=== PATIENT | female | born 1985 | race Caucasian/White ===

== ENCOUNTER → 2017-07-11 | Outpatient (CLI) | payer OTHER ==
--- NOTE | 2017-07-11 16:12 | Diagnostic Imaging Report ---
INDICATION: OB ultrasound for dates and survey. TECHNIQUE: Multiple real-time grayscale images were obtained over the gravid uterus. COMPARISON: None FINDINGS: There is single live intrauterine fetus. Fetus is vertex and active. heart rate of 155 beats per minute. Placenta is anterior and not low. Amniotic fluid index is normal. The anatomical survey is normal. biometric measurements are currently average for 21 week one day. Biometrical measurements are as follows: Biparietal 4.74 cm, age 20 weeks 3 days. Head circumference 18.13 cm, age 20 weeks 4 days. Abdominal circumference 17.24 cm, age 22 weeks 2 days. Femur length 3.55 cm, age 21 weeks 2 days. Sonographic estimate age: 21 weeks 1 days. Sonographic estimated date of delivery: 11-20-17. Estimated Weight: 434 gm (+/- 63 gm). LMP percentile: 97%. heart rate: 155 beats per minute. number: 1 of 1. IMPRESSION: 21-week 1-day live intrauterine by current ultrasound measurements. Sonographic EDC of 11/20/2017. Dictated by: Dictated on workstation # [id number]
== END ==
LOC: EDBD → RAD 12:37
PROVIDERS: ATTEND Obstetrics & Gynecology
DX: Z36.89 Encounter for other specified antenatal screening (principal); Z3A.21 21 weeks gestation of pregnancy
CPT/HCPCS: 76805

== ENCOUNTER 2017-11-14 03:54 | Inpatient (IN) | payer OTHER ==
[2017-11-14] VITALS (50 sets, daily range): BP systolic 93–129; BP diastolic 51–71
[~2017-11-14] VITALS: Ht 167.6 cm; Wt 72.3 kg
[2017-11-14 04:17] LABS: BILIRUBIN,URINE NEGATIVE (NEGATIVE); CLARITY,URINE CLEAR; COLOR,URINE YELLOW; GLUCOSE, URINE (UA) NEGATIVE (NEGATIVE); KETONES,URINE NEGATIVE (NEGATIVE); LEUKOCYTE ESTERASE ,URINE NEGATIVE (NEGATIVE); NITRITE,URINE NEGATIVE (NEGATIVE); PH,URINE 8 (5-9); PROTEIN,URINE NEGATIVE (NEGATIVE); UROBILINOGEN,URINE NORMAL (NORMAL)
[2017-11-14] MEDS ORDERED: FERR-84 PO (04:22)
[2017-11-14] MEDS ORDERED: PREN-37 PO (04:22)
[2017-11-14 04:28] LABS: BACTERIA,URINE NEGATIVE /HPF; SQUAMOUS EPITHELIAL CELL,UR 0-2 /HPF
[2017-11-14] MEDS ORDERED: D5 LR IV SOLUTION 1,000 ML IV ONE (05:24)
[2017-11-14] MEDS ORDERED: D5 LR IV SOLUTION 1,000 ML IV SCH (05:25)
[2017-11-14] MEDS ORDERED: MINERAL OIL CONCENTRATE 99.9% 15 ML UDC TOP PRN (05:30)
[2017-11-14] MEDS ORDERED: CATHETER FLUSH 10 ML SYR IV PRN (05:30)
[2017-11-14 05:49] LABS: BASOPHILS % (AUTO) 0 % (0-10); EOSINOPHILS % (AUTO) 0 % (0-10); HEMATOCRIT 39 % (35-52); HEMOGLOBIN 13.7 G/DL (11.5-16.0); LYMPHOCYTES # (AUTO) 1.8 X 10^3 (1.0-4.0); LYMPHOCYTES % (AUTO) 15 % (12-44); MEAN CORPUSCULAR HEMOGLOBIN 32 PG (25-34); MEAN CORPUSCULAR HGB CONC 35 G/DL (32-36); MEAN CORPUSCULAR VOLUME 90 FL (80-99); MONOCYTES # (AUTO) 0.6 X 10^3 (0.0-1.0); MONOCYTES % (AUTO) 5 % (0-12); NEUTROPHILS # (AUTO) 9.3 X 10^3 (1.8-7.8); NEUTROPHILS % (AUTO) 80 % (42-75); PLATELET COUNT 310 10^3/uL (130-400); RED BLOOD COUNT 4.33 10^6/uL (4.35-5.85); RED CELL DISTRIBUTION WIDTH 13.1 % (10.0-14.5); WHITE BLOOD COUNT 11.7 10^3/uL (4.3-11.0)
[2017-11-14] MEDS ORDERED: SUFENTA 0.6MCG/ML BUPIVA 0.125 100 ML ONE (05:55)
[2017-11-14] MEDS ORDERED: fentaNYL INJECTION 100 MCG/2 ML AMP ONE (06:35)
[2017-11-14] MEDS ORDERED: LACTATED RINGERS 1,000 ML IV ONE ×2 (07:09)
[2017-11-14] MEDS ORDERED: BUPIVACAINE 0.25% 30 ML (SENSORCAINE) VIAL ONE (07:12)
[2017-11-14] MEDS ORDERED: LIDOCAINE PF 2% 5 ML (XYLOCAINE) VIAL ONE (07:12)
[2017-11-14] MEDS ORDERED: EPIDURAL (SUFENTA 0.6MCG/ML BUPIVA 0.125%) 100 ML BAG EPI PRN (07:15)
[2017-11-14] MEDS ORDERED: NALOXONE 0.4 MG/ML 1 ML (NARCAN) VIAL IV PRN (07:15)
[2017-11-14] MEDS ORDERED: ONDANSETRON 4 MG/2 ML (SDV) Z0FRAN IV PRN (07:15)
[2017-11-14] MEDS ORDERED: OXYTOCIN/NORMAL SALINE 500 ML IV ONE (08:30)
[2017-11-14] MEDS ORDERED: OXYTOCIN/NORMAL SALINE 500 ML IV SCH ×2 (08:59→11:32)
--- NOTE | 2017-11-14 09:08 | History & Physical-OB ---
OB - Chief Complaint & HPI Date/Time Date of Admission: Date of Admission: Nov 14, 2017 at 5:24 am Time Seen by Provider: 08:30 Chief Complaint/History OB-Reason for Admission/Chief: Onset of Labor Hx : 3 Hx Para: 1 Expected Date of Delivery: Nov 26, 2017 Gestational Age in Weeks: 38 Other reason for admission: Active labor Admission Nurse Assessment Rev: Yes History of Labs A pos Antibody neg RI RPR NR HBsAg NR HIV NR GC neg GBS neg Allergies and Home Medications Allergies Coded Allergies: No Known Drug Allergies (Unverified , 11/14/17) Home Medications Ferrous Sulfate 325 Mg Tablet, 325 MG PO DAILY, (Reported) Vit/Iron Fumarate/FA 1 Each Tablet, 1 EACH PO DAILY, (Reported) Patient Home Medication List Home Medication List Reviewed: Yes OB - History Hx of Present Care: Yes Ultrasounds: Normal mid trimester US Obstetrical Complications: None Medical Complications: None Obstetrical History Hx : 3 Hx Para: 1 Hx Total # of Abortions (Spona: 1 Delivery History Adverse Rxn to Tranfusion: No Patient Past Medical History n/a Social History/Family History HIV/AIDS: No Recent Infectious Disease Expo: No Sexually Transmitted Disease: No Alcohol Use: Denies Use Recreational Drug Use: No Immunizations Hepatitis A: No Hepatitis B: No OB - Admission Exam Physical Exam Vitals: Vital Signs 11/14/17 11/14/17 06:38 06:58 Temp 98.3 Pulse 110 Resp 18 B/P (MAP) 111/57 (75) Pulse Ox 100 O2 Delivery Room Air HEENT: NCAT Heart: Rhythm Normal Lungs: Clear Abdomen: Gravid Extremities: Normal Reflexes: Normal Cervical Dilatation: 5cm Effacement: 75% Station: -1 Membranes: Intact Heart Rate: 130's Accelerations: Accelerations Present Decelerations: No Decelerations Short Term Variability: Present Correction Variability: Average (6-25) Contractions on Admission: < 5 Minutes Apart Intensity: Firm Labs Laboratory Tests Test 11/14/17 04:05 11/14/17 05:35 Range/Units Urine Color YELLOW Urine Clarity CLEAR Urine pH 8 5-9 Urine Specific [place] 1.010 L 1.016-1.022 Urine Protein NEGATIVE NEGATIVE Urine Glucose (UA) NEGATIVE NEGATIVE Urine Ketones NEGATIVE NEGATIVE Urine Nitrite NEGATIVE NEGATIVE Urine Bilirubin NEGATIVE NEGATIVE Urine Urobilinogen NORMAL NORMAL MG/DL Urine Leukocyte Esterase NEGATIVE NEGATIVE Urine RBC (Auto) NEGATIVE NEGATIVE Urine RBC NONE /HPF Urine WBC NONE /HPF Urine Squamous Epithelial Cells 0-2 /HPF Urine Crystals NONE /LPF Urine Bacteria NEGATIVE /HPF Urine Casts NONE /LPF Urine Mucus SMALL H /LPF Urine Culture Indicated NO White Blood Count 11.7 H 4.3-11.0 10^3/uL Red Blood Count 4.33 L 4.35-5.85 10^6/uL Hemoglobin 13.7 11.5-16.0 G/DL Hematocrit 39 35-52 % Mean Corpuscular Volume 90 80-99 FL Mean Corpuscular Hemoglobin 32 25-34 PG Mean Corpuscular Hemoglobin Concent 35 32-36 G/DL Red Cell Distribution Width 13.1 10.0-14.5 % Platelet Count 310 130-400 10^3/uL Mean Platelet Volume 10.0 7.4-10.4 FL Neutrophils (%) (Auto) 80 H 42-75 % Lymphocytes (%) (Auto) 15 12-44 % Monocytes (%) (Auto) 5 0-12 % Eosinophils (%) (Auto) 0 0-10 % Basophils (%) (Auto) 0 0-10 % Neutrophils # (Auto) 9.3 H 1.8-7.8 X 10^3 Lymphocytes # (Auto) 1.8 1.0-4.0 X 10^3 Monocytes # (Auto) 0.6 0.0-1.0 X 10^3 Eosinophils # (Auto) 0.0 0.0-0.3 10^3/uL Basophils # (Auto) 0.0 0.0-0.1 10^3/uL OB - Assessment/Plan/Diagnosis Assessment Assessment: active labor Admission Dx 31 yo @ 38.2 Active labor GBS neg Admission Status: Inpatient Order (span 2 midnights) Reason for Inpatient Admission: Active labor Term delivery(anticipate vaginal) Plan Plan: Expectant Management SARAH SOLORIO DO Nov 14, 2017 9:08 am
--- NOTE | 2017-11-14 11:31 | OB Labor & Delivery Record ---
L&D History Date of Service Date of Service: Nov 14, 2017 History Expected Date of Delivery: Nov 26, 2017 Gestational Age in Weeks: 38 Hx : 3 Hx Para: 1 Complications Events: Routine care Operative Indications (Cesarea: N/A-Vaginal Delivery Intrapartal Events: None L&D Stage1 Stage One Onset of Labor - Date: Nov 14, 2017 Monitors and Tracing Monitor Mode: External Heart Rate: 140 Monitor Accelerations: Uniform Monitor Decelerations: None Station: -1 Nursing Home Variability: Average (6-10) Short Term Variability: Present Presentation: Vertex Vital Signs VS - Last 72 Hours, by Label 11/14/17 11/14/17 11/14/17 11/14/17 04:11 06:38 06:43 06:46 Temp 99.5 98.3 Pulse 90 88 90 80 Resp 18 18 18 18 B/P (MAP) 116/65 (82) 124/61 (82) 122/56 (78) 112/58 (76) Pulse Ox 97 94 O2 Delivery Room Air Room Air Room Air Room Air 11/14/17 11/14/17 11/14/17 11/14/17 06:49 06:52 06:55 06:58 Pulse 100 96 85 110 Resp 18 18 18 18 B/P (MAP) 112/55 (74) 118/55 (76) 118/57 (77) 111/57 (75) Pulse Ox 98 100 100 100 O2 Delivery Room Air Room Air Room Air Room Air 11/14/17 11/14/17 11/14/17 11/14/17 07:00 07:03 07:06 07:09 Pulse 90 86 89 86 Resp 18 18 18 18 B/P (MAP) 117/62 (80) 117/56 (76) 118/68 (85) 119/71 (87) Pulse Ox 100 100 100 100 O2 Delivery Room Air Room Air Room Air Room Air 11/14/17 11/14/17 11/14/17 11/14/17 07:12 07:15 07:18 07:21 Pulse 83 82 86 83 Resp 18 18 18 18 B/P (MAP) 129/56 (80) 112/59 (76) 110/56 (74) 116/59 (78) Pulse Ox 100 100 100 100 O2 Delivery Room Air Room Air Room Air Room Air 11/14/17 11/14/17 11/14/17 11/14/17 07:24 07:30 07:33 07:36 Pulse 88 95 75 74 Resp 18 18 18 18 B/P (MAP) 107/55 (72) 105/58 (74) 106/57 (73) 105/60 (75) Pulse Ox 100 100 100 100 O2 Delivery Room Air Room Air Room Air Room Air 11/14/17 11/14/17 11/14/17 11/14/17 07:39 07:40 07:45 07:50 Temp 99.4 Pulse 76 84 77 81 Resp 18 18 18 18 B/P (MAP) 101/61 (74) 100/62 (75) 119/63 (81) 93/52 (66) Pulse Ox 100 100 100 100 O2 Delivery Room Air Room Air Room Air Room Air 11/14/17 11/14/17 11/14/17 11/14/17 07:55 08:00 08:05 08:10 Pulse 73 75 91 86 Resp 18 18 18 18 B/P (MAP) 103/58 (73) 102/64 (77) 100/57 (71) 100/59 (73) Pulse Ox 100 100 100 O2 Delivery Room Air Room Air Room Air Room Air 11/14/17 11/14/17 11/14/17 08:15 08:20 08:35 Pulse 88 82 75 Resp 18 18 18 B/P (MAP) 95/51 (66) 101/61 (74) 111/63 (79) Pulse Ox 100 100 100 O2 Delivery Room Air Room Air Room Air Rupture of Membranes Amniotic Membrane Rupture Time: 0821 Amniotic Membrane Fluid Desc.: Bloody Vaginal Bleeding Description: Normal Show Induction/Anesthesia Epidural Cath Placement - Time: 0654 Progress/Notes low dose 2mu pitocin augmentation used. L&D Stage2 Stage Two Stage II Date: Nov 14, 2017 Monitors and Tracing Monitor Mode: External Heart Rate: 140 Monitor Decelerations: Variable Service Or Work Dispatcher Variability: Average (6-10) Short Term Variability: Present Position: Right Occiput Anterior Presentation: Vertex Cord Descript/Complications Cord Vessel Description: 3 Vessels Delivery Type Delivery Method: Spontaneous Vaginal Anterior Shoulder: Left Episiotomy/Perineal Laceration Laceraction(s)/Extensions: Yes Episiotomy Description: Vaginal Extension/lac, 1st degree (vaginal 1st degree laceration and bilateral periurethrals repaired using 3-0 rapide vicryl suture) Condition of Delivery 1 minute Comment: 8 5 minute Comment: 9 Notes Live male weight pending, infant skin to skin with mother Condition of Infant Condition of : Living Exam: No Observed Abnormalities Resuscitation Resuscitation: N/A - Spontaneous Resp L&D Stage3 Stage Three Stage III Date: Nov 14, 2017 Pictocin Pitocin Administration mu/min: 2 Pitocin ml/hr: 2 Pitocin Administration Comment: PITOCIN STARTED wide open 30 mu/min at delivery of placenta Placenta Delivery Placenta Delivery: Spontaneous Delivery Summary Summary Estimated blood loss (mL): 250 Attending at delivery: Sarah Solorio DO Condition of Delivery Examined: Cervix Examined, Uterus Explored Post Hemorrhage: No Condition of Mother stable Condition of (s) stable SARAH SOLORIO DO Nov 14, 2017 11:31 am
--- NOTE | 2017-11-14 11:34 | Discharge Inst-Women's Service ---
Discharge Inst-Women's Serv Depart Medication/Instructions New, Converted or Re-Newed RX: RX on Chart Consults/Follow Up Additional Follow Up: Yes Orders/Referrals Dr. Solorio in 6 weeks Activity Activity: Activity as Tolerated Driving Instructions: No Driving for 1 Week NO SMOKING: NO SMOKING Nothing Inside Vagina: No Douching, No [place], No Tampons Diet Discharge Diet: No Restrictions Symptoms to Report to : Bleeding Excessive, Pain Increased, Fever Over 101 Degrees F, Vaginal Bleeding Increase, Questions/Concerns For Any Problems or Questions: Contact Your Physician Skin/Wound Care Bathing Instructions: Shower (x 2 weeks or sitz baths) SARAH SOLORIO DO Nov 14, 2017 11:34 am
[2017-11-14] MEDS ORDERED: Benzocaine/Menthol TP (11:36)
[2017-11-14] MEDS ORDERED: DOCU100C37 PO (11:36)
[2017-11-14] MEDS ORDERED: IBUP-844 PO (11:36)
[2017-11-14] MEDS ORDERED: DIBU30OI TOP (11:36)
[2017-11-14] MEDS ORDERED: ACHD5005 PO (11:36)
[2017-11-14] MEDS ORDERED: BENZOCAINE/MENTHOL (DERMOPLAST) 56 ML CAN TP PRN (11:45)
[2017-11-14] MEDS ORDERED: TETANUS,DIPTH,PERTUSS P/F (BOOSTRIX) 0.5 ML VIAL IM ONE (11:45)
[2017-11-14] MEDS ORDERED: DIBUCAINE (NUPERCAINAL) 1% OINT 30 GM TOP PRN (11:45)
[2017-11-14] MEDS ORDERED: WITCH HAZEL(TUCKS) 40 EA JAR TOP PRN (11:45)
[2017-11-14] MEDS ORDERED: MEASLES,MUMPS,RUBELLA 1 EA INJ SQ ONE (11:45)
[2017-11-14] MEDS ORDERED: HYDROcodone/APAP 5 MG/325 MG (LORTAB) TAB PO PRN (11:45)
[2017-11-14] MEDS ORDERED: CATHETER FLUSH 10 ML SYR IV SCH (14:00)
[2017-11-14] MEDS: IBUPROFEN 600 MG (MOTRIN) TAB PO SCH ×2 (15:49→22:18)
[2017-11-14] MEDS: DOCUSATE SODIUM 100 MG (COLACE) CAP PO SCH (20:55)
[2017-11-15 03:30] VITALS: BP 96/64
[2017-11-15] MEDS: IBUPROFEN 600 MG (MOTRIN) TAB PO SCH ×2 (05:11→11:22)
[2017-11-15 05:19] LABS: BASOPHILS % (AUTO) 0 % (0-10); EOSINOPHILS # (AUTO) 0.2 10^3/uL (0.0-0.3); EOSINOPHILS % (AUTO) 1 % (0-10); HEMATOCRIT 33 % (35-52); HEMOGLOBIN 11.8 G/DL (11.5-16.0); LYMPHOCYTES # (AUTO) 1.7 X 10^3 (1.0-4.0); LYMPHOCYTES % (AUTO) 12 % (12-44); MEAN CORPUSCULAR HEMOGLOBIN 33 PG (25-34); MEAN CORPUSCULAR HGB CONC 36 G/DL (32-36); MEAN CORPUSCULAR VOLUME 91 FL (80-99); MONOCYTES # (AUTO) 0.7 X 10^3 (0.0-1.0); MONOCYTES % (AUTO) 5 % (0-12); NEUTROPHILS # (AUTO) 11.2 X 10^3 (1.8-7.8); NEUTROPHILS % (AUTO) 81 % (42-75); PLATELET COUNT 207 10^3/uL (130-400); RED BLOOD COUNT 3.62 10^6/uL (4.35-5.85); RED CELL DISTRIBUTION WIDTH 13.1 % (10.0-14.5); WHITE BLOOD COUNT 13.8 10^3/uL (4.3-11.0)
[2017-11-15] MEDS ORDERED: PRENATAL VITAMIN 1 EA TAB PO SCH (07:00)
[2017-11-15 08:50] VITALS: BP 115/73
[2017-11-15] MEDS ORDERED: FERROUS SULF 325 MG (IRON) TAB PO SCH (09:00)
[2017-11-15] MEDS: DOCUSATE SODIUM 100 MG (COLACE) CAP PO SCH (10:06)
--- NOTE | 2017-11-15 10:21 | Postpartum Progress Note ---
Note Note Day #1 Subjective: Patient is without complaints. Ambulating, voiding. Tolerating a regular diet without nausea or vomiting. Normal lochia. Pain is well controlled with oral pain medications. . Objective: Vital Sign - Last 24 Hours 11/14/17 11/14/17 11/14/17 11/14/17 10:35 10:50 11:00 11:20 Pulse 80 75 92 Resp 18 18 18 18 B/P (MAP) 119/65 (83) 123/64 (83) 125/58 (80) 98/68 (78) O2 Delivery Room Air Non Rebreather Room Air Room Air O2 Flow Rate 15.00 11/14/17 11/14/17 11/14/17 11/14/17 11:34 11:49 12:04 12:19 Pulse 85 81 77 80 Resp 18 18 18 B/P (MAP) 100/57 (71) 107/62 (77) 102/65 (77) 107/61 (76) O2 Delivery Room Air Room Air Room Air Room Air 11/14/17 11/14/17 11/14/17 11/14/17 12:34 12:49 13:04 20:30 Temp 97.9 98.4 Pulse 83 93 101 91 Resp 18 18 18 16 B/P (MAP) 120/55 (76) 111/58 (75) 103/59 (74) 103/66 (78) O2 Delivery Room Air Room Air Room Air Room Air 11/15/17 03:30 Temp 97.8 Pulse 70 Resp 16 B/P (MAP) 96/64 (75) O2 Delivery Room Air Intake and Output 11/14/17 11/14/17 11/15/17 15:00 23:00 07:00 Intake Total 1500 ml 500 ml Balance 1500 ml 500 ml Physical Exam: General - Alert and oriented, no apparent distress Abdomen - Soft, appropriately tender to palpation, non-distended, fundus firm at umbilicus Extremities - no edema, negative Roberto Carlos's bilaterally Assessment: PPD 1 Recovering well, hemodynamically stable Plan: Routine care. Encourage breast feeding. Encourage ambulation. Ferrous sulfate supplementation. Plan for discharge today Vitals - Labs Vital Signs - I&O Vital Signs Date Time Temp Pulse Resp B/P (MAP) Pulse Ox O2 Delivery O2 Flow Rate FiO2 11/15/17 03:30 97.8 70 16 96/64 (75) Room Air 11/14/17 20:30 98.4 91 16 103/66 (78) Room Air 11/14/17 13:04 97.9 101 18 103/59 (74) Room Air 11/14/17 12:49 93 18 111/58 (75) Room Air 11/14/17 12:34 83 18 120/55 (76) Room Air 11/14/17 12:19 80 18 107/61 (76) Room Air 11/14/17 12:04 77 18 102/65 (77) Room Air 11/14/17 11:49 81 18 107/62 (77) Room Air 11/14/17 11:34 85 18 100/57 (71) Room Air 11/14/17 11:20 18 98/68 (78) Room Air 11/14/17 11:00 92 18 125/58 (80) Room Air 11/14/17 10:50 75 18 123/64 (83) Non Rebreather 15.00 11/14/17 10:35 80 18 119/65 (83) Room Air I & O 11/15/17 07:00 Intake Total 2000 ml Balance 2000 ml Labs Laboratory Tests 11/15/17 05:10: White Blood Count 13.8H, Red Blood Count 3.62L, Hemoglobin 11.8, Hematocrit 33L , Mean Corpuscular Volume 91, Mean Corpuscular Hemoglobin 33, Mean Corpuscular Hemoglobin Concent 36, Red Cell Distribution Width 13.1, Platelet Count 207, Mean Platelet Volume 10.0, Neutrophils (%) (Auto) 81H, Lymphocytes (%) (Auto) 12 , Monocytes (%) (Auto) 5, Eosinophils (%) (Auto) 1, Basophils (%) (Auto) 0, Neutrophils # (Auto) 11.2H, Lymphocytes # (Auto) 1.7, Monocytes # (Auto) 0.7, Eosinophils # (Auto) 0.2, Basophils # (Auto) 0.0 SARAH SOLORIO DO Nov 15, 2017 10:21 am
--- NOTE | 2017-11-15 11:13 | Anesthesia-Regional Post-Op ---
Regional Patient Condition Mental Status: Alert, Oriented x3 Circulation: Same as Pre-Op Headache: Absent Sensation: Full Recovery Motor Block: Absent Post Op Complications Complications None Follow Up Care/Instructions Patient Instructions None needed. Anesthesia/Patient Condition Patient is doing well, no complaints, stable vital signs, no apparent adverse anesthesia problems. No complications reported per nursing. Patient planning to go home today. REN FANG CRNA Nov 15, 2017 11:13
--- NOTE | 2017-11-18 12:37 | Physician Query-Final Dx ---
DEMETRIS MEDRANO 11/18/17 1236: Final Diagnosis Give Final Diagnosis Please give Final Diagnosis SARAH SOLORIO DO 11/18/17 1733: Final Diagnosis Give Final Diagnosis PPD 1 NVD DEMETRIS MEDARNO Nov 18, 2017 12:36 SARAH SOLORIO DO Nov 18, 2017 17:33
== END 2017-11-15 15:20 | disposition home or self-care (01) | DRG 775 ==
LOC: WSo 03:54 → LDRP 03:59 → WSo 05:24 → LDRP 05:24
PROVIDERS: ADMIT Obstetrics & Gynecology; ATTEND Obstetrics & Gynecology
PROC: 10E0XZZ Delivery of Products of Conception, External Approach (ICD-10-PCS; principal; 2017-11-14)
PROC: 0HQ9XZZ Repair Perineum Skin, External Approach (ICD-10-PCS; 2017-11-14)
PROC: 0UQMXZZ Repair Vulva, External Approach (ICD-10-PCS; 2017-11-14)
DX: O70.0 First degree perineal laceration during delivery (principal); O71.82 Other specified trauma to perineum and vulva; Z3A.38 38 weeks gestation of pregnancy; Z37.0 Single live birth
CPT/HCPCS: 36415; 81000; 85025; 86850; 86900; 86901; 99212